=== PATIENT | male | born 1955 | race African-American/Black ===

== ENCOUNTER 2018-04-01 19:24 | Emergency (ER) | payer OTHER ==
[~2018-04-01] VITALS: Ht 172.7 cm; Wt 85.7 kg
--- NOTE | 2018-04-01 19:34 | NUR ---
Pt ambulated in ER with stable gait with the c/o SOB and abdominal distention. Pt is AAO x 4 and speaking in complete sentences. Pt placed on monitor. VSS. Safe environment implemented.
[2018-04-01] MEDS ORDERED: ALBUTEROL SULFATE 2.5 MG/3 ML NEBU ONE (19:38)
[2018-04-01] MEDS ORDERED: ALBUTEROL SULFATE 2.5 MG/3 ML NEBU NEB ONE (19:45)
[2018-04-01 19:55] LABS: BASOPHILS % (AUTO) 1.1 % (0.0-2.0); EOSINOPHILS # (AUTO) 0.1 K/uL (0.0-0.7); EOSINOPHILS % (AUTO) 2.8 % (0.0-7.0); HEMOGLOBIN 10.6 g/dL (12.5-16.3); LYMPHOCYTES # (AUTO) 0.4 K/uL (20.0-40.0); LYMPHOCYTES % (AUTO) 12.7 % (20.5-51.5); MEAN CORPUSCULAR HEMOGLOBIN 35.1 uug (23.8-33.4); MEAN CORPUSCULAR HGB CONC 34 g/dL (32.5-36.3); MEAN CORPUSCULAR VOLUME 102.9 fL (73.0-96.2); MONOCYTES # (AUTO) 0.6 K/uL (2.0-10.0); MONOCYTES % (AUTO) 17.5 % (0.0-11.0); NEUTROPHILS # (AUTO) 2.3 K/uL (1.8-8.9); NEUTROPHILS % (AUTO) 65.9 % (38.5-71.5); PLATELET COUNT (AUTO) 57 K/uL (152-348); RED BLOOD CELL COUNT(AUTO) 3.02 MIL/uL (4.06-5.63); WHITE BLOOD COUNT (AUTO) 3.5 K/uL (3.6-10.2)
[2018-04-01 20:08] LABS: CREATININE 1.5 mg/dL (0.6-1.3); POTASSIUM 4.2 mmol/L (3.5-5.1)
[2018-04-01 20:21] LABS: BILIRUBIN,DIRECT 1.3 mg/dL (0.0-0.2); BILIRUBIN,TOTAL 2.6 mg/dL (0.2-1.0); EOSINOPHILS % (MANUAL) 3 % (0-8); LYMPHOCYTES % (MANUAL) 15 % (20-40); TOTAL PROTEIN, SERUM 8.2 g/dL (6.4-8.2)
[2018-04-01 20:22] LABS: MONOCYTES % (MANUAL) 12 % (2-10); NEUTROPHILS % (MANUAL) 70 % (42-75)
[2018-04-01] MEDS ORDERED: digoxin PO (20:27)
[2018-04-01] MEDS ORDERED: BLOOD PRESSURE MED PO (20:27)
[2018-04-01] MEDS ORDERED: aldactone PO (20:27)
--- NOTE | 2018-04-01 20:29 | NUR ---
UNABLE TO COMPLETE MED RECONCILATION AT THIS TIME. PATIENT DOES NOT REMEMBER DOSAGES AND NAME OF MEDICATIONS
[2018-04-01] MEDS ORDERED: IV NORMAL SALINE 250 ML IV ONE (20:42)
[2018-04-01] MEDS ORDERED: NORMAL SALINE FLUSH 10 ML DISP.SYRIN ONE (20:42)
[2018-04-01] MEDS ORDERED: SWABABLE VALVE TRANSFER SET EA MC ONE (20:42)
[2018-04-01] MEDS ORDERED: IOHEXOL 350 100 ML INFUS..BTL ONE (20:42)
--- NOTE | 2018-04-01 22:09 | NUR ---
Pt sleeping at this time, easily arousable via verbal and tactilue stimuli. No s/s of respiratory distress.
--- NOTE | 2018-04-01 22:55 | NUR ---
[facility] called for patient's previous visit medical records per ER MD request. Spoke to Kitty (Nursing Account Maintenance Representative) Per Kitty, she will fax over medical records after sending medical record release form to [phone].
--- NOTE | 2018-04-01 23:19 | NUR ---
Medical release form faxed to [facility] and confirmed receipt by Kitty (Nursing Cloth Desizing Range Tender)
[2018-04-01] MEDS ORDERED: FUROSEMIDE 40 MG/4 ML VIAL ONE (23:40)
[2018-04-01] MEDS ORDERED: FUROSEMIDE 20 MG/2 ML VIAL IV ONE (23:45)
--- NOTE | 2018-04-01 23:53 | NUR ---
Patient discharged to home in stable conditon. Written and verbal after care instructions given. Patient verbalizes understanding of instructions. Ambulated from ER with stable gait. All belongings with patient. Peripheral IV removed prior to d/c.
[2018-04-01 23:55] VITALS: BP 124/74
== END 2018-04-01 23:55 | disposition home or self-care (01) ==
LOC: ER 19:25
DX: R18.8 Other ascites (principal); I11.0 Hypertensive heart disease with heart failure; I50.9 Heart failure, unspecified; J44.9 Chronic obstructive pulmonary disease, unspecified; E78.5 Hyperlipidemia, unspecified; Z79.899 Other long term (current) drug therapy
CPT/HCPCS: 36415; 71045; 71250; 74176; 80048; 80076; 83880; 84484; 85025; 85730; 93005; 94640; 96374; 99284; J1940; Q9967; 70030-TC; A4663; J3490; J7050